=== PATIENT | female | born 2000 | race Caucasian/White ===

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

== ENCOUNTER 2019-06-21 16:20 | Emergency (ER) | payer OTHER ==
[~2019-06-21] VITALS: Ht 157.5 cm; Wt 65.5 kg
[2019-06-21 16:21] VITALS: BP 124/59
[2019-06-21] MEDS ORDERED: OCUF0.25 OP (17:51)
== END 2019-06-21 18:37 | disposition home or self-care (01) ==
LOC: M ED 16:20
DX: H57.9 Unspecified disorder of eye and adnexa (principal); Z77.098 Contact with and (suspected) exposure to other hazardous, chiefly nonmedicinal, chemicals; Z88.8 Allergy status to other drugs, medicaments and biological substances

== ENCOUNTER → 2019-12-15 | Outpatient (REF) | payer OTHER ==
[~2019-12-15] MED LIST changes: +OCUF0.25 OP
[2019-12-15 13:22] LABS: HEMATOCRIT 37.4 % (36.0-47.0); HEMOGLOBIN 13.3 g/dl (12.0-15.5); MEAN CORPUSCULAR HEMOGLOBIN 30.8 pg (27.0-33.0); MEAN CORPUSCULAR HGB CONC 35.6 g/dl (32.0-36.5); MEAN CORPUSCULAR VOLUME 86.6 fl (80.0-96.0); PLATELET COUNT, AUTOMATED 275 10^3/uL (150-450); RED BLOOD COUNT 4.32 10^6/uL (4.00-5.40); WHITE BLOOD COUNT 6.9 10^3/uL (4.0-10.0)
[2019-12-15 14:31] LABS: HEPATITIS B SURFACE ANTIGEN NEGATIVE (NEGATIVE); HEPATITIS C VIRUS ABY INDEX 0.1 INDEX (<0.8); HIV 1&2 SCREEN CENTAUR NEGATIVE (NEGATIVE); RUBELLA IgG QUALITATIVE IMMUNE (IMMUNE)
[2019-12-15 15:10] LABS: CHLAMYDIA DNA AMPLIFICATION NEGATIVE (NEGATIVE); GC DNA AMPLIFICATION NEGATIVE (NEGATIVE)
== END ==
LOC: M PLALAB 11:53
PROVIDERS: ATTEND Specialist
DX: Z34.01 Encounter for supervision of normal first pregnancy, first trimester (principal); Z3A.00 Weeks of gestation of pregnancy not specified

== ENCOUNTER → 2020-02-08 | Outpatient (CLI) | payer OTHER ==
--- NOTE | 2020-02-09 02:50 | REP ---
Clinical: Anatomical evaluation. Comparison: None . Findings: Examination demonstrates a single live intrauterine in variable presentation. motion is identified by technologist. Placenta is noted anterior and grade I without evidence for placenta previa or abruption. Amniotic fluid volume is normal. Cervix measures 4.1 cm in length and appears closed. No evidence for nuchal cord. Gestational age by LMP 19 weeks 3 days with NICHOL 07/01/2020 . Gestational age by current measurements 19 weeks 3 days with NICHOL 07/01/2020 . FHR equals 153 beats per minute. BPD 4.5 cm 19 weeks 4 days HC 17.3 cm 19 weeks 6 days AC 14.5 cm 19 weeks 6 days FL 3.0 cm 19 weeks 3 days HL 3.1 cm 20 weeks 2 days HC/AC ratio 1.19 Estimated weight 305 grams ( 55th percentile). Anatomical assessment demonstrates normal structures including cranium, choroid plexus, cavum, cerebellum/posterior fossa, facial features, lungs, four-chamber heart/ventricular outflow tracts, diaphragm, stomach, cord insertion/three-vessel cord, kidneys/bladder, spine, and extremities. Impression: Single live intrauterine in variable presentation demonstrating appropriate estimated weight and growth. Anatomical assessment is complete and normal. No gross abnormalities are identified.
== END ==
LOC: M WHC 07:50
PROVIDERS: ATTEND Advanced Practice Midwife
DX: Z34.02 Encounter for supervision of normal first pregnancy, second trimester (principal); Z36.89 Encounter for other specified antenatal screening; Z3A.19 19 weeks gestation of pregnancy

== ENCOUNTER → 2020-06-13 | Outpatient (REF) | payer OTHER ==
[~2020-06-13] MED LIST changes: +ACET-683 PO; +IBUP80TA PO
== END ==
LOC: M SFHCWAGY 13:00
PROVIDERS: ATTEND Obstetrics & Gynecology
DX: Z34.03 Encounter for supervision of normal first pregnancy, third trimester (principal); Z36.89 Encounter for other specified antenatal screening

== ENCOUNTER 2020-06-23 07:52 | Inpatient (IN) | payer OTHER ==
[~2020-06-23] VITALS: Ht 157.5 cm; Wt 84.6 kg
[2020-06-23] VITALS (40 sets, daily range): BP systolic 116–222; BP diastolic 55–120
[~2020-06-23 07:52] MED LIST changes: -ACET-683 PO; -IBUP80TA PO
[2020-06-23] MEDS ORDERED: miSOPROStol 50 MCG 1/2 TAB (S0191) PO ONE ×2 (09:30→13:45)
[2020-06-23 10:01] LABS: HEMATOCRIT 32.2 % (36.0-47.0); HEMOGLOBIN 10.9 g/dl (12.0-15.5); MEAN CORPUSCULAR HEMOGLOBIN 29.7 pg (27.0-33.0); MEAN CORPUSCULAR HGB CONC 33.9 g/dl (32.0-36.5); MEAN CORPUSCULAR VOLUME 87.7 fl (80.0-96.0); PLATELET COUNT, AUTOMATED 180 10^3/uL (150-450); RED BLOOD COUNT 3.67 10^6/uL (4.00-5.40); WHITE BLOOD COUNT 8.2 10^3/uL (4.0-10.0)
[2020-06-23 10:22] LABS: ALT/SGPT 70 U/L (12-78); BILIRUBIN,TOTAL 0.2 MG/DL (0.2-1.0); CREATININE FOR GFR 0.53 MG/DL (0.55-1.30); LDH LACTATE DEHYDROGENASE 384 U/L (84-246); URIC ACID 4.9 MG/DL (2.6-6.0)
[2020-06-23 13:53] LABS: CREATININE,RANDOM URINE 32.5 MG/DL
[2020-06-23] MEDS ORDERED: ONDANSETRON 4MG/2ML VIAL As Ordered ONE (17:35)
[2020-06-23] MEDS ORDERED: LR 1,000 ML IV SCH (17:45)
[2020-06-23] MEDS ORDERED: OXYTOCIN DRIP 30 UNITS in IV 1 EA IV SCH (17:45)
[2020-06-23] MEDS ORDERED: ONDANSETRON 4MG/2ML VIAL IV ONE (17:45)
[2020-06-23 18:26] LABS: HEMATOCRIT 32.9 % (36.0-47.0); HEMOGLOBIN 11.2 g/dl (12.0-15.5); MEAN CORPUSCULAR VOLUME 88.2 fl (80.0-96.0); PLATELET COUNT, AUTOMATED 182 10^3/uL (150-450); RED BLOOD COUNT 3.73 10^6/uL (4.00-5.40); WHITE BLOOD COUNT 12.2 10^3/uL (4.0-10.0)
[2020-06-23] MEDS ORDERED: FENTANYL 2MCG/ML ROPIVACAINE 0.2% IN 0.9% NACL 100ML IVBAG As Ordered ONE (19:41)
[2020-06-23] MEDS ORDERED: ePHEDrine SULFATE 25 MG/5 ML(5MG/ML) SYRINGE IV PRN (20:45)
[2020-06-23] MEDS ORDERED: EPIDURAL COMMENT XX SCH (20:45)
[2020-06-23] MEDS ORDERED: EPIDURAL/PCA KEYS XX PRN (20:45)
[2020-06-23] MEDS ORDERED: ONDANSETRON 4MG/2ML VIAL IV PRN (20:45)
[2020-06-23] MEDS ORDERED: diphenhydrAMINE 50MG/ML VIAL (J1200) IV PRN (20:45)
[2020-06-23] MEDS ORDERED: REFRIGERATOR IV KEYS XX PRN (20:45)
[2020-06-23] MEDS ORDERED: NALOXONE INJ 0.4MG/1ML VIAL (J2310 PER 1MG) IV PRN (20:45)
[2020-06-23] MEDS ORDERED: LABETALOL 100MG/20ML VIAL IV STA (21:15)
[2020-06-23] MEDS ORDERED: OXYTOCIN 30 UNITS IN 0.9% NaCl 500ML IV BAG (J2590) As Ordered ONE (21:20)
[2020-06-23] MEDS: FENTANYL/ROPIVACAINE/NACL BAG 100 ML EPIDURAL SCH (21:30)
--- NOTE | 2020-06-23 21:43 | IPNPDOC ---
Obstetrical Progress Note Date of Service Jun 23, 2020 Subjective Pt comfortable with epidural. Objective Vital Signs Date Time Temp Pulse Resp B/P (MAP) Pulse Ox O2 Delivery O2 Flow Rate FiO2 06/23/20 21:25 82 183/81 06/23/20 18:27 18 06/23/20 17:53 97.1 21:33 BP 121/59 Assessment Heart Rate (FHR): 140 Variability: Moderate Accelerations: Positive Decelerations: None Heart Rate Tracing: Category I Tocometer Contractions: Yes Frequency: other (every 2-4 min) Assessment and Plan Weeks & Days IUP at 38 6/7 weeks Status: Reassuring (FHR category I) Additional Comments Labetalol 20 mg IV stat given at 21:23, continue to observe. LUDY BARRY CNM Jun 23, 2020 21:43
[2020-06-24] VITALS (39 sets, daily range): BP systolic 107–164; BP diastolic 53–92
[2020-06-24] MEDS: FENTANYL/ROPIVACAINE/NACL BAG 100 ML EPIDURAL SCH (05:29)
--- NOTE | 2020-06-24 06:24 | IPNPDOC ---
Obstetrical Progress Note Date of Service Jun 24, 2020 Subjective Pt states she is exhausted and uncomfortable with an epidural. Reports pain is worse on right side. Objective Vital Signs Date Time Temp Pulse Resp B/P (MAP) Pulse Ox O2 Delivery O2 Flow Rate FiO2 06/24/20 05:14 88 123/56 (78) 06/24/20 04:29 98.9 06/23/20 18:27 18 Assessment Heart Rate (FHR): 150 Variability: Moderate Accelerations: Positive Decelerations: Variable Heart Rate Tracing: Category II Tocometer Contractions: Yes Frequency: regular, other (every 2-3 minutes) Sterile Vaginal Examination Dilation: 6 cm Effacement (%): 90% Station: -2 Cervical Consistency: Soft Cervical Position: Middle Postion/Presentation: Cephalic presentation Assessment and Plan Status: Reassuring Additional Comments Pitocin at 20 mU/min since 0300. A: IUP at 39 0/7 weeks, FHR category II, active labor P: Consult anesthesia for improved pain control. Continue pitocin induction. Continue to observe. Anticipate . LUDY BARRY CNM Jun 24, 2020 06:24
[2020-06-24] MEDS ORDERED: ACETAMINOPHEN TAB 650MG DOSE (2X325MG) PO PRN (13:00)
[2020-06-24] MEDS ORDERED: METHYLERGONOVINE MALEATE 0.2 MG TAB PO PRN (13:00)
[2020-06-24] MEDS ORDERED: IBUPROFEN 800 MG TAB PO PRN (13:00)
[2020-06-24] MEDS ORDERED: MEASLES,MUMPS,RUBELLA VACCINE INJ (MMR-II) (90707) SC SCH (13:00)
[2020-06-24] MEDS ORDERED: DIBUCAINE 1% OINTMENT 30GM TOP PRN (13:00)
[2020-06-24] MEDS ORDERED: IBUPROFEN 600MG TAB PO PRN (13:00)
[2020-06-24] MEDS ORDERED: OXYTOCIN DRIP 30 UNITS in IV 1 EA IV ONE (13:00)
[2020-06-24] MEDS ORDERED: ONDANSETRON 4MG/2ML VIAL IV PRN (13:00)
[2020-06-24] MEDS ORDERED: ACETAMINOPHEN 500 MG TAB PO PRN (13:00)
[2020-06-24] MEDS ORDERED: RHOGAM 300 MCG (1500 IU) INJ (J2790) IM SCH (13:00)
[2020-06-24] MEDS ORDERED: DOCUSATE SODIUM 100 MG CAP PO PRN (13:00)
--- NOTE | 2020-06-24 13:01 | DNPDOC ---
[facility] Delivery Note Delivery Note DATE OF DELIVERY: 06/24/2020 PREDELIVERY DIAGNOSIS: 38 6/7 weeks' gestation, preeclampsia, labor induction POST DELIVERY DIAGNOSIS: Delivered. PROCEDURE: Spontaneous vaginal delivery SET UP AND CHARGER: Dr. Tenzin MD ANESTHESIA: Epidural. ESTIMATED BLOOD LOSS: 300 mL. FINDINGS: 8 pound 4 ounce Male , Score 7/9 DELIVERY SUMMARY: Patient is a 19-year-old 1 now para 1 who was admitted to labor and delivery for induction due to preeclampsia. After a 2 hour second stage of labor stage had a spontaneous vaginal delivery of an 8 lb. 4 oz Male infant under epidural. No nuchal cord. A shoulder dystocia of 25 seconds was encountered. It was relieved with McRobert's and Ramp maneuvers. The placenta delivered spontaneously and appeared intact. Patient received IV Pitocin after delivery. A first degree perineal laceration was repaired with a single interrupted suture of 2-O Vicryl. Venous cord gas obtained. Sponge and needle counts correct. LARA BONILLA MD Jun 24, 2020 13:01
[2020-06-24 13:11] LABS: CORD GAS ABE V -7.2; CORD GAS HCO3 V 16.9 MEQ/L; CORD GAS O2 SAT V 82.1 %; CORD GAS PCO2 V 30.8 mmHg; CORD GAS PH V 7.356 UNITS; CORD GAS PO2 V 39.6 mmHg; CORD GAS SBC V 18.4 MEQ/L; CORD GAS TCO2 V 17.8 MEQ/L
[2020-06-25 02:00] VITALS: BP 131/61
[2020-06-25 05:18] VITALS: BP 133/66
[2020-06-25 10:00] VITALS: BP 133/62
[2020-06-25] MEDS: PRENATAL VITAMINS CHEWABLE TABLET PO SCH (10:27)
[2020-06-25 14:00] VITALS: BP 116/57
[2020-06-25 18:00] VITALS: BP 102/55
[2020-06-25 22:19] VITALS: BP 135/61
[2020-06-26 02:21] VITALS: BP 140/74
[2020-06-26 06:16] VITALS: BP 119/56
[2020-06-26] MEDS ORDERED: IBUP80TA PO (07:53)
[2020-06-26] MEDS ORDERED: ACET-683 PO (07:53)
[2020-06-26] MEDS: PRENATAL VITAMINS CHEWABLE TABLET PO SCH (09:10)
== END 2020-06-26 12:40 | disposition home or self-care (01) | DRG 807 ==
LOC: M LDO 07:52 → M LDI 09:26 → M OBS 06-24 16:14
PROVIDERS: ADMIT Advanced Practice Midwife; ATTEND Specialist
PROC: 10E0XZZ Delivery of Products of Conception, External Approach (ICD-10-PCS; principal; 2020-06-24)
PROC: 0HQ9XZZ Repair Perineum Skin, External Approach (ICD-10-PCS; 2020-06-24)
DX: O42.02 Full-term premature rupture of membranes, onset of labor within 24 hours of rupture (principal); Z37.0 Single live birth; Z3A.38 38 weeks gestation of pregnancy; O14.94 Unspecified pre-eclampsia, complicating childbirth; O66.0 Obstructed labor due to shoulder dystocia; O70.0 First degree perineal laceration during delivery

== ENCOUNTER 2020-08-03 17:54 | Emergency (ER) | payer OTHER ==
[~2020-08-03] VITALS: Ht 157.5 cm; Wt 68.8 kg
[~2020-08-03 17:54] MED LIST changes: +ACET-683 PO; +IBUP80TA PO
[2020-08-03 18:05] VITALS: BP 115/64
== END 2020-08-03 20:45 | disposition left against medical advice (07) ==
LOC: M ED 17:54
DX: Z53.21 Procedure and treatment not carried out due to patient leaving prior to being seen by health care provider (principal)

== ENCOUNTER → 2021-02-13 | Outpatient (REF) | payer OTHER | LOC: M LAB REF 10:45 | PROVIDERS: ATTEND Obstetrics & Gynecology | DX: Z20.822 Contact with and (suspected) exposure to COVID-19 (principal) ==

== ENCOUNTER → 2022-06-21 | Outpatient (REF) | payer OTHER, SELFPAY | LOC: M SFHCWAGY 09:47 | PROVIDERS: ATTEND Nurse Practitioner Family | DX: Z12.4 Encounter for screening for malignant neoplasm of cervix (principal); R87.618 Other abnormal cytological findings on specimens from cervix uteri ==